=== PATIENT | male | born 1970 | race Caucasian/White ===

== ENCOUNTER 2019-09-28 07:00 | Day surgery (SDC) | payer MEDICARE, MEDICAID ==
[~2019-09-28 07:00] MED LIST: Gatifloxacin 0.5% Ophth Soln 2.5 ML Bot EYELF SCH
[2019-09-28] MEDS: Cyclopentolate 1% Opth Soln 2 ML Bottle EYELF SCH ×3 (07:17→07:37)
[2019-09-28] MEDS: Phenylephrine 10% Ophth Soln 5 ML Bot EYELF SCH ×3 (07:22→07:44)
[2019-09-28] MEDS ORDERED: Sodium Chloride 0.9% 10 ML Syringe FLUSH PRN (07:30)
[2019-09-28] MEDS ORDERED: Lactated Ringers 1,000 ML IV SCH (07:30)
[2019-09-28] MEDS ORDERED: Gatifloxacin 0.5% Ophth Soln 2.5 ML Bot EYELF SCH (07:30)
[2019-09-28] MEDS ORDERED: Cyclopentolate 1% Opth Soln 2 ML Bottle EYELF SCH (08:00)
[2019-09-28] MEDS ORDERED: Phenylephrine 10% Ophth Soln 5 ML Bot EYELF SCH (08:00)
[2019-09-28] MEDS ORDERED: Hyaluronate Sodium 1% 0.85 ML Syringe IOCULAR ONE (08:36)
[2019-09-28] MEDS ORDERED: Lidocaine 1% 10 ML MDV INJECT ONE (08:36)
[2019-09-28] MEDS ORDERED: Water For Irrigation,Sterile 1,500 ML Container IRR ONE (08:36)
[2019-09-28] MEDS ORDERED: Balanced Salt Solution Ophth Irrig 15 ML Bottle EYELF ONE (08:36)
[2019-09-28] MEDS ORDERED: Lidocaine 2% with EPINEPHrine 1:100,000 20 ML MDV INJECT ONE (08:36)
[2019-09-28] MEDS ORDERED: Balanced Salt Solution Plus Ophth Irrig 500 ML Bottle IOCULAR ONE (08:36)
[2019-09-28] MEDS ORDERED: Carbachol 0.01% Intraocular 1.5 ML Vial EYELF ONE (08:36)
[2019-09-28] MEDS ORDERED: EPINEPHrine 1 MG/1 ML Amp ONE (08:36)
[2019-09-28] MEDS ORDERED: Tetracaine HCl/PF 0.5% 4 ML Bottle EYEBOTH ONE (08:36)
--- NOTE | 2019-09-28 14:54 | OR ---
DATE OF SURGERY: 09/28/2019 SURGEON: Osmar John MD PREOPERATIVE DIAGNOSIS: Cataract, left eye. POSTOPERATIVE DIAGNOSIS: Cataract, left eye. FINDINGS: The patient was taken to the operating room where appropriate anesthesia, sedation and monitoring were provided. A retrobulbar block was given on the left side. The eye was massaged and was found to be appropriately soft. The eye and eyelids were then prepped and draped in the usual sterile manner. A lid speculum was placed. Using a surgical microscope, it could be seen that the lens lacked zonular support from 9.30 to 2.30 and it was noted that as the patient laid on his back the superior aspect of the lens tilted backward,i.e. posteriorly. Specifically, one could see beyond the borders of the patient's own natural lens and zonular support was totally lacking. This makes necessary posterior chamber lens that can be sewed into position and we do not have this capability here. The eyelids were closed and then shield was placed over the patient's eye. The patient left the operating room in good condition. /[id number]
== END 2019-09-28 08:55 | disposition home or self-care (01) ==
LOC: KA.SDS 07:00
PROVIDERS: ATTEND Ophthalmology
DX: H26.9 Unspecified cataract (principal); I10 Essential (primary) hypertension; M81.0 Age-related osteoporosis without current pathological fracture; Z53.8 Procedure and treatment not carried out for other reasons; Z87.891 Personal history of nicotine dependence; Z88.8 Allergy status to other drugs, medicaments and biological substances; Z88.6 Allergy status to analgesic agent; Z79.899 Other long term (current) drug therapy
CPT/HCPCS: 36415; 66984; 84132; J0171; J2001; J7120

== ENCOUNTER 2022-01-06 10:11 | Emergency (ER) | payer MEDICARE, MEDICAID | END 2022-01-06 10:56 | disposition home or self-care (01) | LOC: KA.ED 10:11 | DX: G89.4 Chronic pain syndrome (principal); M79.7 Fibromyalgia; E78.00 Pure hypercholesterolemia, unspecified; I10 Essential (primary) hypertension; J44.9 Chronic obstructive pulmonary disease, unspecified; Z88.5 Allergy status to narcotic agent; Z88.8 Allergy status to other drugs, medicaments and biological substances; Z79.82 Long term (current) use of aspirin | CPT/HCPCS: 99283; 99284 ==

== ENCOUNTER 2022-05-22 11:19 | Emergency (ER) | payer MEDICARE, MEDICAID | END 2022-05-22 12:49 | disposition home or self-care (01) | LOC: KA.ED 11:19 | DX: S00.502A Unspecified superficial injury of oral cavity, initial encounter (principal); R07.81 Pleurodynia; M47.816 Spondylosis without myelopathy or radiculopathy, lumbar region; M79.7 Fibromyalgia; E78.00 Pure hypercholesterolemia, unspecified; I10 Essential (primary) hypertension; J44.9 Chronic obstructive pulmonary disease, unspecified; Z88.5 Allergy status to narcotic agent; Z88.8 Allergy status to other drugs, medicaments and biological substances; Z79.82 Long term (current) use of aspirin; W19.XXXA Unspecified fall, initial encounter | CPT/HCPCS: 71101-RT; 72080; 99283; 99284 ==

== ENCOUNTER 2023-01-31 12:32 | Emergency (ER) | payer MEDICARE, MEDICAID ==
[2023-01-31] MEDS ORDERED: Aspirin 81 MG Tab.Chew PO ONE (12:41)
[2023-01-31] MEDS ORDERED: Sodium Chloride 0.9% 10 ML Syringe FLUSH PRN (12:41)
[2023-01-31 13:10] LABS: ANION GAP 14.9 mmol/L (5-15); CHLORIDE,CL 102 mmol/L (98-107); SODIUM,NA 137 mmol/L (136-145)
[2023-01-31 13:31] LABS: ESTIMATED GFR 107 mL/min (>=60)
[2023-01-31] MEDS ORDERED: Morphine 2 MG/ML SYRINGE IVPUSH ONE (14:03)
[2023-01-31] MEDS ORDERED: Heparin Sodium 5,000 Units/ML Vial ONE (14:15)
[2023-01-31] MEDS ORDERED: Heparin Sodium/D5W 250 ML ONE (14:16)
[2023-01-31] MEDS ORDERED: Nitroglycerin 0.4 MG Tab.SL SL PRN (14:25)
[2023-01-31] MEDS ORDERED: Nitroglycerin 0.4 MG Tab.SL ONE (14:25)
[2023-01-31] MEDS ORDERED: Heparin Sodium 5,000 Units/ML Vial IVPUSH ONE (14:29)
[2023-01-31] MEDS ORDERED: Heparin Sodium/D5W 250 ML IV SCH (14:30)
[2023-01-31] MEDS ORDERED: Sodium Chloride 0.9% 1,000 ML ONE (14:38)
[2023-01-31] MEDS ORDERED: Sodium Chloride 0.9% 1,000 ML IV SCH (14:45)
== END 2023-01-31 14:45 ==
LOC: KA.ED 12:32
DX: I21.4 Non-ST elevation (NSTEMI) myocardial infarction (principal); I24.9 Acute ischemic heart disease, unspecified; M47.816 Spondylosis without myelopathy or radiculopathy, lumbar region; M54.9 Dorsalgia, unspecified; G89.11 Acute pain due to trauma; G89.4 Chronic pain syndrome; M79.7 Fibromyalgia; E78.00 Pure hypercholesterolemia, unspecified; I10 Essential (primary) hypertension; J44.9 Chronic obstructive pulmonary disease, unspecified; Z88.5 Allergy status to narcotic agent; Z88.6 Allergy status to analgesic agent; Z88.8 Allergy status to other drugs, medicaments and biological substances; Z79.899 Other long term (current) drug therapy; Z87.891 Personal history of nicotine dependence
CPT/HCPCS: 71045; 80048; 84484; 85025; 96374; 96375; 99285; A9270; J1644; J2270; J7030; 93010; 99284; J3490

== ENCOUNTER 2023-02-04 20:45 | Observation (INO) | payer MEDICARE, MEDICAID ==
[2023-02-04] MEDS ORDERED: Sodium Chloride 0.9% 10 ML Syringe FLUSH PRN (21:18)
[2023-02-04 21:42] LABS: ANION GAP 19.2 mmol/L (5-15); CHLORIDE,CL 104 mmol/L (98-107); ESTIMATED GFR 110 mL/min (>=60); SODIUM,NA 140 mmol/L (136-145)
[2023-02-04] MEDS ORDERED: Nitroglycerin 2% Oint 1 GM UD Packet TOP ONE (21:59)
[2023-02-04] MEDS ORDERED: Heparin Sodium/D5W 250 ML IV SCH (22:00)
[2023-02-04] MEDS ORDERED: Heparin Sodium 5,000 Units/ML Vial IVPUSH ONE (22:47)
[2023-02-04] MEDS ORDERED: Heparin Sodium 5,000 Units/ML Vial ONE (22:50)
[2023-02-04] MEDS ORDERED: Nitroglycerin 0.4 MG Tab.SL SL PRN (23:00)
[2023-02-04] MEDS ORDERED: Lidocaine 2% 100 MG/5 ML Syringe IVPUSH PRN (23:00)
[2023-02-04] MEDS ORDERED: EPINEPHrine 1:10,000 1 MG/10 ML Syringe IVPUSH PRN (23:00)
[2023-02-04] MEDS ORDERED: Atropine 0.1 MG/ML 10 ML Syringe IVPUSH PRN (23:00)
[2023-02-04] MEDS ORDERED: Donepezil 10 MG Tab PO SCH (23:45)
[2023-02-04] MEDS ORDERED: NORTRIPTYLINE 25 MG PO SCH (23:45)
[2023-02-04] MEDS ORDERED: Morphine 4 MG/ML Syringe IV PRN (23:54)
[2023-02-05] MEDS ORDERED: Ticagrelor 90 MG Tab PO ONE (00:15)
[2023-02-05] MEDS ORDERED: Baclofen 10 MG Tab ONE (00:15)
[2023-02-05] MEDS ORDERED: Losartan 50 MG Tab ONE (00:16)
[2023-02-05] MEDS ORDERED: Metoprolol Succinate 50 MG Tab.ER ONE (00:16)
[2023-02-05] MEDS ORDERED: Escitalopram 10 MG Tab ONE (00:16)
[2023-02-05] MEDS ORDERED: Donepezil 10 MG Tab ONE (00:16)
[2023-02-05] MEDS ORDERED: Tamsulosin 0.4 MG Cap.ER ONE (00:17)
[2023-02-05] MEDS ORDERED: QUEtiapine 100 MG Tab ONE (00:17)
[2023-02-05] MEDS: QUEtiapine 100 MG Tab PO SCH ×2 (00:23→09:14)
[2023-02-05] MEDS: Metoprolol Succinate 50 MG Tab.ER PO SCH ×2 (00:23→09:14)
[2023-02-05] MEDS: Tamsulosin 0.4 MG Cap.ER PO SCH ×2 (00:23→09:13)
[2023-02-05] MEDS: Ticagrelor 90 MG Tab PO SCH ×2 (00:23→09:14)
[2023-02-05] MEDS: Losartan 50 MG Tab PO SCH ×2 (00:26→09:15)
[2023-02-05] MEDS: Escitalopram 10 MG Tab PO SCH ×2 (00:26→09:14)
[2023-02-05] MEDS: Baclofen 10 MG Tab PO SCH ×2 (00:26→09:13)
[2023-02-05] MEDS ORDERED: Heparin Sodium 5,000 Units/ML Vial IVPUSH ONE (04:22)
[2023-02-05] MEDS ORDERED: Omeprazole 20 MG Cap.CR PO SCH (09:00)
[2023-02-05] MEDS ORDERED: Rosuvastatin 10 MG Tab PO SCH (09:00)
[2023-02-05] MEDS ORDERED: Aspirin 81 MG Tab.EC PO SCH (09:00)
[2023-02-05] MEDS ORDERED: Acetaminophen 325 MG Tab PO PRN (09:55)
== END 2023-02-05 10:50 | disposition home or self-care (01) ==
LOC: KA.ED 20:45 → KA.MS 22:18
PROVIDERS: ADMIT Physician Assistant Medical; ATTEND Family Medicine
DX: I20.0 Unstable angina (principal); R74.8 Abnormal levels of other serum enzymes; I21.4 Non-ST elevation (NSTEMI) myocardial infarction; I10 Essential (primary) hypertension; E78.00 Pure hypercholesterolemia, unspecified; J44.9 Chronic obstructive pulmonary disease, unspecified; M79.7 Fibromyalgia; F41.9 Anxiety disorder, unspecified; Z88.8 Allergy status to other drugs, medicaments and biological substances; Z88.5 Allergy status to narcotic agent; Z79.899 Other long term (current) drug therapy
CPT/HCPCS: 36415; 71046; 80053; 84484; 85025; 85730; 93010; 96366; 96374; 96375; 99223; 99285-25; A9270-GY; G0378; J1644

== ENCOUNTER 2023-07-11 11:22 | Emergency (ER) | payer MEDICARE, MEDICAID ==
[2023-07-11] MEDS ORDERED: Aspirin 81 MG Tab.Chew ONE (11:35)
[2023-07-11] MEDS: Aspirin 81 MG Tab.Chew PO ONE (11:37)
[2023-07-11 11:51] LABS: BASOPHILS ABSOLUTE AUTO 0.01 10^3/uL (0.00-0.10); BASOPHILS PERCENT AUTO 0.1 % (0.0-1.0); EOSINOPHILS PERCENT AUTO 1.1 % (1.0-3.0); HEMATOCRIT 47.6 % (40.0-52.0); HEMOGLOBIN 15.8 g/dL (13.0-17.0); IMMATURE GRAN ABSOLUTE AUTO 0.03 10^3/uL (0.00-0.50); IMMATURE GRAN PERCENT AUTO 0.3 % (0.0-5.0); LYMPHOCYTES ABSOLUTE AUTO 2.69 10^3/uL (1.00-4.00); LYMPHOCYTES PERCENT AUTO 29.9 % (20.0-40.0); MEAN CORPUSCULAR HEMOGLOBIN 29.8 pg (27.0-31.0); MEAN CORPUSCULAR HGB CONC 33.2 g/dL (32.0-36.0); MEAN CORPUSCULAR VOLUME 89.8 fL (82.0-92.0); MEAN PLATELET VOLUME 10.2 fL (7.4-10.4); MONOCYTES ABSOLUTE AUTO 0.94 10^3/uL (0.10-0.80); MONOCYTES PERCENT AUTO 10.4 % (2.0-8.0); NEUTROPHILS ABSOLUTE AUTO 5.23 10^3/uL (2.50-7.00); NEUTROPHILS PERCENT AUTO 58.2 % (50.0-70.0); PLATELET COUNT,PLT 202 10^3/uL (150-400); RED CELL DISTRIBUTION WIDTH 12.6 % (11.5-14.5)
[2023-07-11 12:13] LABS: ANION GAP 12.6 mmol/L (5-15); CALCIUM 9.2 mg/dL (8.7-10.3); CARBON DIOXIDE,CO2 26.6 mmol/L (21.0-32.0); CREATININE 0.82 mg/dL (0.51-1.17); EST CRCL DRUG DOSING (CG) 99.15 mL/min; POTASSIUM,K 4.2 mmol/L (3.5-5.1)
== END 2023-07-11 12:38 | disposition home or self-care (01) ==
LOC: KA.ED 11:22
DX: R07.89 Other chest pain (principal); E78.00 Pure hypercholesterolemia, unspecified; I10 Essential (primary) hypertension; I25.2 Old myocardial infarction; J44.9 Chronic obstructive pulmonary disease, unspecified; Z87.891 Personal history of nicotine dependence; Z95.5 Presence of coronary angioplasty implant and graft; Z79.899 Other long term (current) drug therapy; Z88.5 Allergy status to narcotic agent; Z88.8 Allergy status to other drugs, medicaments and biological substances
CPT/HCPCS: 36415; 71045; 80048; 83880; 84484; 85025; 93005; 99284; 99285; A9270-GY